=== PATIENT | female | born 1970 | race Caucasian/White ===

== ENCOUNTER 2017-09-03 13:55 | Emergency (ER) | END 2017-09-03 16:27 | disposition home or self-care (01) ==

== ENCOUNTER 2018-09-01 18:18 | Inpatient (IN) | payer MEDICAID ==
[~2018-09-01] VITALS: Ht 152.4 cm; Wt 78.0 kg
[~2018-09-01 18:18] MED LIST: BACTDS PO; BENZ-6 PO; CEPH-443 PO; D-ME473S2 PO; HYDR-762 PO; IBUP-1542 PO; IBUP-1561 PO; NITR-58 PO; ONDA4TAB35 PO
[2018-09-01] MEDS ORDERED: ONDANSETRON 4 MG INJ IV STA (19:50)
[2018-09-01] MEDS ORDERED: SOD CHLORIDE 0.9% 1,000 ML IV STA (19:50)
[2018-09-01] MEDS ORDERED: CEFTRIAXONE 1 GM/50 ML (PMX) 50 ML IVPB ONE (21:00)
[2018-09-01] MEDS ORDERED: ACETAMINOPHEN 500 MG TAB PO STA (21:27)
--- NOTE | 2018-09-01 22:00 | ERD ---
ER Documentation Chief Complaint Chief Complaint abdominal pain/vomiting/diarrhea x 4 days HPI 48-year-old female presents the emergency department complaining of abdominal pain. Patient states over the last 4 days she is a diffuse, nonspecific abdominal pain which is getting worse. She reports the pain is nonspecific and visceral in nature. Pain is associated with nausea with nonbilious emesis. Pain is associated with loose stool but no bloody diarrhea. Patient also reports bilateral flank pain as well as fevers and chills. Pain is described as mild to moderate at this time. ROS All systems reviewed and are negative except as per history of present illness. Medications Home Meds Discontinued Scripts Dextromethorphan Hb-Promethazine Hcl* (Promethazine DM* Syrup) 473 Ml Syrup, 5 ML PO Q6 PRN for COUGH, #4 OZ Prov:JAMAL ART PA-C 09/03/17 Benzonatate* (Tessalon Perle*) 100 Mg Capsule, 100 MG PO Q8H PRN for COUGH, #15 CAP Prov:JAMAL ART PA-C 09/03/17 Ibuprofen* (Motrin*) 600 Mg Tab, 600 MG PO Q6, #20 TAB Prov:JAMAL ART PA-C 09/03/17 Sulfamethoxazole-Trimethoprim* (Bactrim* DS) 800-160 Mg Tab, 1 TAB PO BID for 7 Days, #14 TAB 0 Refills Prov:KAELA WRIGHT PA-C 04/05/16 Ibuprofen* (Motrin*) 400 Mg Tab, 400 MG PO Q6 for 7 Days, #30 TAB 0 Refills Prov:KAELA WRIGHT PA-C 04/05/16 Cephalexin* (Keflex*) 500 Mg Capsule, 500 MG PO TID for 7 Days, #21 CAP 0 Refills Prov:KAELA WRIGHT PA-C 04/05/16 Ibuprofen* (Motrin*) 600 Mg Tab, 600 MG PO Q8 for 10 Days, #30 TAB 0 Refills Prov:KAELA WRIGHT PA-C 03/16/16 Ondansetron Hcl* (Zofran* ODT) 4 mg -ODT Tab.disper, 4 MG PO Q6 PRN for NAUSEA AND/OR VOMITING, #30 TAB Prov:KEVON MARTINES MD 02/19/16 Hydrocodone Bit-Acetaminophen* ([place]*) 10-325 Mg Tablet, 1 TAB PO Q6 PRN for PAIN, #7 TAB Prov:KEVON MARTINES MD 02/19/16 Nitrofurantoin Monohyd Macrocr* (Macrobid*) 100 Mg Capsr, 100 MG PO BID for 7 Days, CAP Prov:KEVON MARTINES MD 02/19/16 Allergies Allergies: Coded Allergies: No Known Allergy (Unverified , 09/01/18) PMhx/Soc History of Surgery: Yes (cholecystectomy 1998.kidneys stones laser removal) Anesthesia Reaction: No Hx Neurological Disorder: No Hx Respiratory Disorders: No Hx Cardiac Disorders: No Hx Psychiatric Problems: No Hx Miscellaneous Medical Probl: No Hx Alcohol Use: No Hx Substance Use: No Hx Tobacco Use: No Smoking Status: Never smoker FmHx Noncontributory for chief complaint Physical Exam Vitals Vital Signs Date Temp Pulse Resp B/P (MAP) Pulse Ox O2 O2 Flow FiO2 Time Delivery Rate 09/01/18 102.4 20:25 09/01/18 101.5 99 18 121/76 100 18:25 (91) Physical Exam GENERAL: Ill-appearing female in no distress HEENT: Pupils equal, round, and reactive to light. EOMI. There is no scleral icterus. NECK: C-spine is soft and supple, there is no meningismus. There is no cervical lymphadenopathy. LUNGS: Clear to auscultation bilaterally. There are no rales, wheezes or rhonchi. HEART: Regular rate and rhythm, no murmurs, clicks, rubs or gallops. ABDOMEN: Soft, non-tender, non-distended. There are bowel sounds in all four quadrants. No rebound or guarding. EXTREMITIES: There is no peripheral cyanosis or edema. No focal swelling or erythema. NEURO: The patient moves all four extremities with 5/5 strength. Cranial nerves II - XII are intact. Normal gait. Alert and oriented SKIN: There is no apparent rash or petechiae. HEME/LYMPHATIC: There is no evidence of excessive bruising or lymphedema. PSYCHIATRIC: The patient does not appear anxious or depressed. Result Diagram: 09/01/18200909/01/182009 Results 24 hrs Laboratory Tests Test 09/01/18 20:10 White Blood Count 10.3 10^3/ul Red Blood Count 4.75 10^6/ul Hemoglobin 9.3 g/dl Hematocrit 31.4 % Mean Corpuscular Volume 66.1 fl Mean Corpuscular Hemoglobin 19.6 pg Mean Corpuscular Hemoglobin Concent 29.6 g/dl Red Cell Distribution Width 17.8 % Platelet Count 200 10^3/UL Mean Platelet Volume 10.2 fl Immature Granulocytes % 0.600 % Neutrophils % 83.6 % Lymphocytes % 6.4 % Monocytes % 9.2 % Eosinophils % 0.0 % Basophils % 0.2 % Nucleated Red Blood Cells % 0.0 /100WBC Immature Granulocytes # 0.060 10^3/ul Neutrophils # 8.6 10^3/ul Lymphocytes # 0.7 10^3/ul Monocytes # 0.9 10^3/ul Eosinophils # 0.0 10^3/ul Basophils # 0.0 10^3/ul Nucleated Red Blood Cells # 0.0 10^3/ul Urine Color YELLOW Urine Clarity CLOUDY Urine pH 6.0 Urine Specific [place] 1.015 Urine Ketones NEGATIVE mg/dL Urine Nitrite NEGATIVE mg/dL Urine Bilirubin NEGATIVE mg/dL Urine Urobilinogen 1+ mg/dL Urine Leukocyte Esterase 3+ Melissa/ul Urine Microscopic RBC 4 /HPF Urine Microscopic WBC 68 /HPF Urine Squamous Epithelial Cells FEW /HPF Urine Bacteria FEW /HPF Urine Hemoglobin 2+ mg/dL Urine Glucose NEGATIVE mg/dL Urine Total Protein 2+ mg/dl Urine Test NEGATIVE Sodium Level 136 mmol/L Potassium Level 3.3 mmol/L Chloride Level 97 mmol/L Carbon Dioxide Level 26 mmol/L Anion Gap 13 Blood Urea Nitrogen 15 mg/dl Creatinine 0.57 mg/dl Est Glomerular Filtrat Rate mL/min > 60 mL/min Glucose Level 123 mg/dl Calcium Level 8.9 mg/dl Total Bilirubin 0.3 mg/dl Direct Bilirubin 0.00 mg/dl Indirect Bilirubin 0.3 mg/dl Aspartate Amino Transf (AST/SGOT) 21 IU/L Alanine Aminotransferase (ALT/SGPT) 6 IU/L Alkaline Phosphatase 87 IU/L Total Protein 7.5 g/dl Albumin 3.9 g/dl Globulin 3.60 g/dl Albumin/Globulin Ratio 1.08 Lipase 22 U/L Current Medications Medications Dose Sig/Brandee Start Time Status Last (Trade) Ordered Route PRN Stop Time Admin Dose Reason Admin Sodium 1,000 ml @ Q1H STAT 09/01/18 DC 09/01/18 Chloride 1,000 mls/hr IV 19:50 09/01/18 20:15 20:49 Ondansetron 4 mg ONCE STAT 09/01/18 DC 09/01/18 HCl (Zofran IV 19:50 09/01/18 20:16 Inj) 19:51 Ceftriaxone 50 ml @ ONCE ONCE 09/01/18 DC 09/01/18 Sodium 100 mls/hr IVPB 21:00 09/01/18 21:15 21:29 1,000 mg ONCE STAT 09/01/18 DC 09/01/18 Acetaminophen PO 21:27 09/01/18 21:45 (Tylenol 21:28 Tab) Procedures/MDM Patient was taken to a room, seen and evaluated. Comfort measures were i nitiated. Diagnostic tests were ordered and reviewed. RADIOLOGY: Reviewed with the radiologist CONSULTATION: Hospitalist was notified for admission urology consultation was requested REEVALUATION: [id number]: Diagnostic tests were appreciated and discussed with the patient. Although she remained nontoxic, I recommended admission to the hospital. MEDICAL DECISION MAKIN-year-old female presents the emergency department with what appears to be pyelonephritis. The remainder of her abdominal s ymptomatology has been worked up with no evidence of appendicitis. She is already status post cholecystectomy. She has evidence of an obstructing kidney stone which is likely related to the pain but also complicating the infection. Patient will require admission to the hospital for fluids and antibiotics at this time. Departure Diagnosis: Primary Impression: Pyelonephritis Additional Impression: Kidney stone Condition: JESSE Lee Sep 01, 2018 22:00
--- NOTE | 2018-09-01 23:56 | HP ---
Date/Time of Note Date/Time of Note DATE: 09/01/18 TIME: 23:56 Assessment/Plan VTE Prophylaxis Pharmacological prophylaxis: heparin Assessment/Plan Assessment/Plan 1. Obstructing left ureteral stone -Patient with a history of left-sided lithotripsy about 20 years ago -Will treat with IV fluids, Flomax, IV antibiotic -Strain urine -Urology has been consulted ER 2. Sepsis secondary to UTI with possible left-sided pyelonephritis -See #1 -Follow-up blood and urine culture results 3. Microcytic anemia -Workup for iron deficiency 4. Mild hypokalemia: Replete Result Diagram: 09/01/18200909/01/182009 Results 24hrs Laboratory Tests Test 09/01/18 20:10 White Blood Count 10.3 Red Blood Count 4.75 Hemoglobin 9.3 #L Hematocrit 31.4 #L Mean Corpuscular Volume 66.1 L Mean Corpuscular Hemoglobin 19.6 L Mean Corpuscular Hemoglobin Concent 29.6 L Red Cell Distribution Width 17.8 #H Platelet Count 200 Mean Platelet Volume 10.2 Immature Granulocytes % 0.600 H Neutrophils % 83.6 H Lymphocytes % 6.4 L Monocytes % 9.2 Eosinophils % 0.0 Basophils % 0.2 Nucleated Red Blood Cells % 0.0 Immature Granulocytes # 0.060 H Neutrophils # 8.6 H Lymphocytes # 0.7 L Monocytes # 0.9 Eosinophils # 0.0 Basophils # 0.0 Nucleated Red Blood Cells # 0.0 Urine Color YELLOW Urine Clarity CLOUDY A Urine pH 6.0 Urine Specific [place] 1.015 Urine Ketones NEGATIVE Urine Nitrite NEGATIVE Urine Bilirubin NEGATIVE Urine Urobilinogen 1+ H Urine Leukocyte Esterase 3+ H Urine Microscopic RBC 4 Urine Microscopic WBC 68 H Urine Squamous Epithelial Cells FEW Urine Bacteria FEW A Urine Hemoglobin 2+ H Urine Glucose NEGATIVE Urine Total Protein 2+ H Urine Test NEGATIVE Sodium Level 136 Potassium Level 3.3 L Chloride Level 97 Carbon Dioxide Level 26 Anion Gap 13 Blood Urea Nitrogen 15 Creatinine 0.57 Est Glomerular Filtrat Rate mL/min > 60 Glucose Level 123 Calcium Level 8.9 Total Bilirubin 0.3 Direct Bilirubin 0.00 Indirect Bilirubin 0.3 Aspartate Amino Transf (AST/SGOT) 21 Alanine Aminotransferase (ALT/SGPT) 6 L Alkaline Phosphatase 87 Total Protein 7.5 Albumin 3.9 Globulin 3.60 H Albumin/Globulin Ratio 1.08 Lipase 22 L HPI/ROS Admit Date/Time Admit Date/Time Hx of Present Illness This is a 48-year-old female with a history of left-sided nephroureterolithiasis about 18-20 years ago status post lithotripsy who presented to ER complaining of left flank and suprapubic pain. She also reported nonbloody nonbilious vomiting. When she presented to ER she was febrile with a temperature as high as 102.4. UA consistent with UTI. CT abdomen/pelvis shows there is an obstructing 7 mm distal left ureteral stone at the UVJ with a second smaller nonobstructing stone more proximally within the left ureter measuring 3 mm as well as multiple other bilateral nonobstructing renal calculi are seen including a staghorn calculus in the left upper pole. Currently, patient looks comfortable without any pain even on physical exam, even though she received pain meds several hours ago. PMH/Family/Social Past Medical History Medical History: other Coded Allergies: No Known Allergy (Unverified , 09/01/18) Past Surgical History Past Surgical Hx: cholecystectomy, other (Left-sided lithotripsy) Family History Significant Family History: heart disease, diabetes, hypertension Social History Alcohol Use: none Smoking Status: Never smoker Drug Use: none Exam/Review of Systems Vital Signs Vitals Vital Signs Date Temp Pulse Resp B/P (MAP) Pulse Ox O2 O2 Flow FiO2 Time Delivery Rate 09/01/18 100.3 83 20 126/54 99 Room Air 22:54 (78) Exam Constitutional: alert, oriented, well developed Head: normocephalic, atraumatic Eyes: EOMI, PERRL Respiratory: clear to auscultation, normal air movement Cardiovascular: regular rate and rhythm, nl pulses Gastrointestinal: soft, non-tender Extremities: normal pulses DANK SHERWOOD MD Sep 01, 2018 23:56
[2018-09-02] VITALS (13 sets, daily range): BP systolic 91–122; BP diastolic 22–72; PULSE 71–105; RESP 17–18; Ht 152.4 cm; Wt 78.0 kg
[2018-09-02] MEDS ORDERED: NACL 0.9% 3 ML SYG IV SCH
[2018-09-02] MEDS ORDERED: ONDANSETRON 4 MG INJ IV PRN
[2018-09-02] MEDS ORDERED: ACETAMINOPHEN 325 MG TAB PO PRN
[2018-09-02] MEDS ORDERED: HYDROCODONE/APAP (5/325) TAB PO PRN
[2018-09-02] MEDS ORDERED: TAMSULOSIN (SR) 0.4 MG CAP PO ONE (00:30)
[2018-09-02] MEDS: HYDROCODONE/APAP (5/325) TAB PO PRN (00:50)
[2018-09-02] MEDS: SOD CHLORIDE 0.9% 1,000 ML IV SCH ×3 (01:57→18:24)
[2018-09-02] MEDS: POTASSIUM CHLORIDE 100 ML IVPB SCH ×2 (02:17→05:03)
[2018-09-02] MEDS ORDERED: ALPRAZOLAM 1 MG TAB PO ONE (06:00)
[2018-09-02] MEDS: CEFTRIAXONE 1 GM/50 ML (PMX) 50 ML IVPB SCH (08:24)
[2018-09-02] MEDS ORDERED: HEPARIN 5,000 UNIT/1 ML VIAL SC SCH (09:00)
--- NOTE | 2018-09-02 11:29 | PN ---
Date/Time of Note Date/Time of Note DATE: 09/02/18 TIME: 11:20 Assessment/Plan VTE Prophylaxis Risk score (from Ns)>0 risk: 2 SCD applied (from [facility] [place]): No SCD contraindicated: other Pharmacological prophylaxis: heparin Lines/Catheters IV [facility] ([facility] Saline Lock Assessment/Plan Hospital Course S: O: VS - see below PE: GENERAL: Ill-appearing female in no distress HEENT: Pupils equal, round, and reactive to light. EOMI. NECK: C-spine is soft and supple, there is no meningismus. LUNGS: Clear to auscultation bilaterally. There are no rales, wheezes or rhonchi. HEART: Regular rate and rhythm, no murmurs, clicks, rubs or gallops. ABDOMEN: Soft, non-tender, non-distended. There are bowel sounds in all four quadrants. No rebound or guarding. EXTREMITIES: There is no peripheral cyanosis or edema. No focal swelling or erythema. NEURO: No focal deficits CT A/P: IMPRESSION: There is an obstructing 7 mm distal left ureteral stone at the UVJ with a second smaller nonobstructing stone more proximally within the left ureter measuring 3 mm. Multiple other bilateral nonobstructing renal calculi are seen including a staghorn calculus in the left upper pole. No evidence of bowel obstruction or inflammation. Trace atherosclerotic changes are visible. Assessment/Plan: 48-year-old female presenting with: 1. Obstructing left ureteral stone-Patient with a history of left-sided lithotripsy about [address] scan abdomen pelvis this admission results noted. -Continue treatment with IV fluids, Flomax, IV antibiotic -Strain urine -Follow recommendations from urology team 2. Sepsis secondary to UTI with possible left-sided pyelonephritis -patient on antibiotics, slowly improving -See #1 -Follow-up blood and urine culture results 3. Microcytic anemia-appears to be secondary to iron deficiency. -We will recheck hemoglobin today since it is lower today -Order for IV iron in the meantime 4. Mild hypokalemia: Monitor, will replete Result Diagram: 09/02/18 0525 09/02/18 0525 Results 24hrs Laboratory Tests Test 09/01/18 20:10 09/02/18 05:22 09/02/18 05:25 White Blood Count 10.3 6.4 # Red Blood Count 4.75 4.02 L Hemoglobin 9.3 #L 7.8 L Hematocrit 31.4 #L 27.1 L Mean Corpuscular Volume 66.1 L 67.4 L Mean Corpuscular Hemoglobin 19.6 L 19.4 L Mean Corpuscular Hemoglobin Concent 29.6 L 28.8 L Red Cell Distribution Width 17.8 #H 17.5 H Platelet Count 200 176 Mean Platelet Volume 10.2 10.6 H Immature Granulocytes % 0.600 H 0.500 H Neutrophils % 83.6 H 75.5 Lymphocytes % 6.4 L 10.9 L Monocytes % 9.2 12.6 H Eosinophils % 0.0 0.2 Basophils % 0.2 0.3 Nucleated Red Blood Cells % 0.0 0.0 Immature Granulocytes # 0.060 H 0.030 Neutrophils # 8.6 H 4.8 Lymphocytes # 0.7 L 0.7 L Monocytes # 0.9 0.8 Eosinophils # 0.0 0.0 Basophils # 0.0 0.0 Nucleated Red Blood Cells # 0.0 0.0 Urine Color YELLOW Urine Clarity CLOUDY A Urine pH 6.0 Urine Specific [place] 1.015 Urine Ketones NEGATIVE Urine Nitrite NEGATIVE Urine Bilirubin NEGATIVE Urine Urobilinogen 1+ H Urine Leukocyte Esterase 3+ H Urine Microscopic RBC 4 Urine Microscopic WBC 68 H Urine Squamous Epithelial Cells FEW Urine Bacteria FEW A Urine Hemoglobin 2+ H Urine Glucose NEGATIVE Urine Total Protein 2+ H Urine Test NEGATIVE Sodium Level 136 138 Potassium Level 3.3 L 3.5 Chloride Level 97 101 Carbon Dioxide Level 26 28 Anion Gap 13 9 Blood Urea Nitrogen 15 15 Creatinine 0.57 0.56 Est Glomerular Filtrat Rate mL/min > 60 > 60 Glucose Level 123 120 Calcium Level 8.9 8.3 L Total Bilirubin 0.3 Direct Bilirubin 0.00 Indirect Bilirubin 0.3 Aspartate Amino Transf (AST/SGOT) 21 Alanine Aminotransferase (ALT/SGPT) 6 L Alkaline Phosphatase 87 Total Protein 7.5 Albumin 3.9 Globulin 3.60 H Albumin/Globulin Ratio 1.08 Lipase 22 L Iron Level 11 L Total Iron Binding Capacity 288 Percent Iron Saturation 4 L Phosphorus Level 3.2 Magnesium Level 2.3 Ferritin 108.0 Exam/Review of Systems Vital Signs Vitals Vital Signs Date Temp Pulse Resp B/P (MAP) Pulse Ox O2 O2 Flow FiO2 Time Delivery Rate 09/02/18 75 08:23 09/02/18 98.1 17 101/52 99 07:12 (68) 09/02/18 Room Air 00:09 Intake and Output 09/01/18 09/01/18 09/02/18 1414:59 22:59 06:59 IntakeIntake Total 980 ml OutputOutput Total 300 ml BalanceBalance 680 ml Medications Medications Current Medications Sodium Chloride 1,000 ml @ 100 mls/hr Q10H IV Last administered on 09/02/18at 01:57; Admin Dose 100 MLS/HR; Start 09/02/18 at 00:00 IV Flush (NS 3 ml) 3 ml PER PROTOCOL IV ; Start 09/02/18 at 00:00 Ondansetron HCl (Zofran Inj) 4 mg Q6H PRN IV NAUSEA AND/OR VOMITING Last ad ministered on 09/02/18at 03:29; Admin Dose 4 MG; Start 09/02/18 at 00:00 Acetaminophen (Tylenol Tab) 650 mg Q6H PRN PO PAIN LEVEL 1-3 OR FEVER; Start 09/02/18 at 00:00 Acetaminophen/ Hydrocodone Bitart ([place] (5/325)) 1 tab Q6H PRN PO MODERATE PAIN LEVEL 4-6; Start 09/02/18 at 00:00 Acetaminophen/ Hydrocodone Bitart ([place] (5/325)) 2 tab Q6H PRN PO SEVERE PAIN LEVEL 7-10 Last administered on 09/02/18at 00:50; Admin Dose 2 TAB; Start 09/02/18 at 00:00 Heparin Sodium (Porcine) (Heparin (5000 Units/1ml)) 5,000 unit Q12 SC Last administered on 09/02/18at 09:40; Admin Dose 5,000 UNIT; Start 09/02/18 at 09:00 Ceftriaxone Sodium 50 ml @ 100 mls/hr DAILY IVPB Last administered on 09/02/18at 08:24; Admin Dose 100 MLS/HR; Start 09/02/18 at 09:00 GUERRERO NAVAS Sep 02, 2018 11:29
[2018-09-02] MEDS: SOD FERRIC GLUC COMPLX 125 MG in SOD CHLORIDE 0.9% 100 ML IVPB SCH (13:05)
--- NOTE | 2018-09-02 14:35 | CONS ---
Date/Time of Note Date/Time of Note DATE: 09/02/18 TIME: 14:28 Assessment/Plan Assessment/Plan Assessment/Plan 48-year-old female presented to the emergency room with left flank pain. She underwent a CT scan of the abdomen and pelvis and that showed multiple stones in the left kidney and a 7 mm stone in the distal left ureter causing obstruction. Urological consultation was therefore requested. Patient states that she has had kidney stones in the past has undergone extracorporeal shockwave lithotripsy to them at [facility] about 20 years earlier. She does have left flank tenderness. I reviewed the CT scan with her and her family at her bedside. Showed her the stone in the distal left ureter and also the multiple stones in her left kidney. Explained to her the treatment options. We will do cystoscopy left ureteroscopy, laser lithotripsy, and insertion of left ureteral JJ stent. Procedure is for the distal left ureteral stone but nothing is going to be done for the kidney stones at the present time since they are not causing problems. She will need later on treatment for the stones as an outpatient. I discussed with her the procedure, the benefits, the risks and the possible complications. I also explained to her that we will remove the stone in the ureter and nothing will guarantee that another stone from her left kidney does not come down and cause the same problem. She did understand all of that and she is agreeable to proceed Result Diagram: 09/02/18 1226 09/02/18 0525 Results 24hrs Laboratory Tests Test 09/01/18 20:10 09/02/18 05:22 09/02/18 05:25 09/02/18 12:26 White Blood Count 10.3 6.4 # Red Blood Count 4.75 4.02 L Hemoglobin 9.3 #L 7.8 L 8.3 L Hematocrit 31.4 #L 27.1 L 28.8 L Mean Corpuscular Volume 66.1 L 67.4 L Mean Corpuscular 19.6 L 19.4 L Hemoglobin Mean Corpuscular 29.6 L 28.8 L Hemoglobin Concent Red Cell Distribution 17.8 #H 17.5 H Width Platelet Count 200 176 Mean Platelet Volume 10.2 10.6 H Immature Granulocytes % 0.600 H 0.500 H Neutrophils % 83.6 H 75.5 Lymphocytes % 6.4 L 10.9 L Monocytes % 9.2 12.6 H Eosinophils % 0.0 0.2 Basophils % 0.2 0.3 Nucleated Red Blood 0.0 0.0 Cells % Immature Granulocytes # 0.060 H 0.030 Neutrophils # 8.6 H 4.8 Lymphocytes # 0.7 L 0.7 L Monocytes # 0.9 0.8 Eosinophils # 0.0 0.0 Basophils # 0.0 0.0 Nucleated Red Blood 0.0 0.0 Cells # Urine Color YELLOW Urine Clarity CLOUDY A Urine pH 6.0 Urine Specific [place] 1.015 Urine Ketones NEGATIVE Urine Nitrite NEGATIVE Urine Bilirubin NEGATIVE Urine Urobilinogen 1+ H Urine Leukocyte Esterase 3+ H Urine Microscopic RBC 4 Urine Microscopic WBC 68 H Urine Squamous FEW Epithelial Cells Urine Bacteria FEW A Urine Hemoglobin 2+ H Urine Glucose NEGATIVE Urine Total Protein 2+ H Urine Test NEGATIVE Sodium Level 136 138 Potassium Level 3.3 L 3.5 Chloride Level 97 101 Carbon Dioxide Level 26 28 Anion Gap 13 9 Blood Urea Nitrogen 15 15 Creatinine 0.57 0.56 Est Glomerular Filtrat > 60 > 60 Rate mL/min Glucose Level 123 120 Calcium Level 8.9 8.3 L Total Bilirubin 0.3 Direct Bilirubin 0.00 Indirect Bilirubin 0.3 Aspartate Amino 21 Transf (AST/SGOT) Alanine 6 L Aminotransferase (ALT/SG PT) Alkaline Phosphatase 87 Total Protein 7.5 Albumin 3.9 Globulin 3.60 H Albumin/Globulin Ratio 1.08 Lipase 22 L Iron Level 11 L Total Iron Binding 288 Capacity Percent Iron Saturation 4 L Phosphorus Level 3.2 Magnesium Level 2.3 Ferritin 108.0 Consultation Date/Type/Reason Admit Date/Time September 02, 2018 Date of Consultation: Sep 02, 2018 Type of Consult Urology Reason for Consultation Distal left ureteral stone Requesting Provider: DANK SHERWOOD MD Hx of Present Illness 48-year-old female presented to the emergency room with left flank pain. She underwent a CT scan of the abdomen and pelvis and that showed multiple stones in the left kidney and a 7 mm stone in the distal left ureter causing obstruction. Urological consultation was therefore requested. Patient states that she has had kidney stones in the past has undergone extracorporeal shockwave lithotripsy to them at [facility] about 20 years earlier. Constitutional: no complaints Eyes: no complaints ENT: no complaints Respiratory: no complaints Cardiovascular: no complaints Gastrointestinal: no complaints Genitourinary: flank pain (Left side) Musculoskeletal: no complaints Skin: no complaints Neurologic: no complaints Endocrine: no complaints Psychological: no complaints Immunologic: no complaints Past Medical History Medical History: no pertinent history Medications Current Medications Sodium Chloride 1,000 ml @ 100 mls/hr Q10H IV Last administered on 09/02/18at 01:57; Admin Dose 100 MLS/HR; Start 09/02/18 at 00:00 IV Flush (NS 3 ml) 3 ml PER PROTOCOL IV ; Start 09/02/18 at 00:00 Ondansetron HCl (Zofran Inj) 4 mg Q6H PRN IV NAUSEA AND/OR VOMITING Last administered on 09/02/18at 03:29; Admin Dose 4 MG; Start 09/02/18 at 00:00 Acetaminophen (Tylenol Tab) 650 mg Q6H PRN PO PAIN LEVEL 1-3 OR FEVER; Start 09/02/18 at 00:00 Acetaminophen/ Hydrocodone Bitart ([place] (5/325)) 1 tab Q6H PRN PO MODERATE PAIN LEVEL 4-6; Start 09/02/18 at 00:00 Acetaminophen/ Hydrocodone Bitart ([place] (5/325)) 2 tab Q6H PRN PO SEVERE PAIN LEVEL 7-10 Last administered on 09/02/18at 00:50; Admin Dose 2 TAB; Start 09/02/18 at 00:00 Heparin Sodium (Porcine) (Heparin (5000 Units/1ml)) 5,000 unit Q12 SC Last administered on 09/02/18at 09:40; Admin Dose 5,000 UNIT; Start 09/02/18 at 09:00 Ceftriaxone Sodium 50 ml @ 100 mls/hr DAILY IVPB Last administered on 09/02/18at 08:24; Admin Dose 100 MLS/HR; Start 09/02/18 at 09:00 Ferric Sodium Gluconate Complex 125 mg/Sodium Chloride 100 ml @ 100 mls/hr DAILY@1300 IVPB Last administered on 09/02/18at 13:05; Admin Dose 100 MLS/HR; Start 09/02/18 at 13:00; Stop 09/04/18 at 13:59 Allergies: Coded Allergies: No Known Allergy (Unverified , 09/01/18) Past Surgical History Past Surgical Hx: cholecystectomy, other (Left-sided lithotripsy) Social History Alcohol Use: none Smoking Status: Never smoker Drug Use: none Exam/Review of Systems Vital Signs Vitals Vital Signs Date Temp Pulse Resp B/P (MAP) Pulse Ox O2 O2 Flow FiO2 Time Delivery Rate 09/02/18 94 12:11 09/02/18 98.6 17 108/61 100 Room Air 11:27 (77) Intake and Output 09/01/18 09/01/18 09/02/18 1515:00 23:00 07:00 IntakeIntake Total 980 ml OutputOutput Total 300 ml BalanceBalance 680 ml Exam Constitutional: alert Psych: no complaints Head: normocephalic Eyes: nl conjunctiva ENMT: nl external ears & nose Neck: supple, non-tender Respiratory: normal air movement Cardiovascular: No jugular venous distention (JVD) Gastrointestinal: soft Genitourinary - Female: CVA tenderness (Left side) Musculoskeletal: nl extremities to inspection Extremities: No calf tenderness Neurological: nl mental status Skin: nl turgor Medications Medications Current Medications Sodium Chloride 1,000 ml @ 100 mls/hr Q10H IV Last administered on 09/02/18at 01:57; Admin Dose 100 MLS/HR; Start 09/02/18 at 00:00 IV Flush (NS 3 ml) 3 ml PER PROTOCOL IV ; Start 09/02/18 at 00:00 Ondansetron HCl (Zofran Inj) 4 mg Q6H PRN IV NAUSEA AND/OR VOMITING Last administered on 09/02/18at 03:29; Admin Dose 4 MG; Start 09/02/18 at 00:00 Acetaminophen (Tylenol Tab) 650 mg Q6H PRN PO PAIN LEVEL 1-3 OR FEVER; Start 09/02/18 at 00:00 Acetaminophen/ Hydrocodone Bitart ([place] (5/325)) 1 tab Q6H PRN PO MODERATE PAIN LEVEL 4-6; Start 09/02/18 at 00:00 Acetaminophen/ Hydrocodone Bitart ([place] (5/325)) 2 tab Q6H PRN PO SEVERE PAIN LEVEL 7-10 Last administered on 09/02/18at 00:50; Admin Dose 2 TAB; Start 09/02/18 at 00:00 Heparin Sodium (Porcine) (Heparin (5000 Units/1ml)) 5,000 unit Q12 SC Last administered on 09/02/18at 09:40; Admin Dose 5,000 UNIT; Start 09/02/18 at 09:00 Ceftriaxone Sodium 50 ml @ 100 mls/hr DAILY IVPB Last administered on 09/02/18at 08:24; Admin Dose 100 MLS/HR; Start 09/02/18 at 09:00 Ferric Sodium Gluconate Complex 125 mg/Sodium Chloride 100 ml @ 100 mls/hr LEONARDO Y@1300 IVPB Last administered on 09/02/18at 13:05; Admin Dose 100 MLS/HR; Start 09/02/18 at 13:00; Stop 09/04/18 at 13:[address] scan of the abdomen and pelvis: There is an obstructing 7 mm distal left ureteral stone at the UVJ with a second smaller nonobstructing stone more proximally within the left ureter measuring 3 mm. Multiple other bilateral nonobstructing renal calculi are seen including a staghorn calculus in the left upper pole. No evidence of bowel obstruction or inflammation. Trace atherosclerotic changes are visible. ANDREW PANTOJA MD Sep 02, 2018 14:35
[2018-09-03] VITALS (17 sets, daily range): BP systolic 100–122; BP diastolic 56–67; PULSE 70–89; RESP 16–21
[2018-09-03] MEDS: SOD CHLORIDE 0.9% 1,000 ML IV SCH ×2 (06:00→14:15)
[2018-09-03] MEDS ORDERED: SEVOFLURANE 15 MIN ONE (07:00)
[2018-09-03] MEDS ORDERED: EPHEDrine SULFATE 50 MG/5 ML SYG ONE (07:00)
--- NOTE | 2018-09-03 07:19 | PREAC ---
Date/Time of Note Date/Time of Note DATE: 09/03/18 TIME: 07:15 Anesthesia Eval and Record Evaluation Time Pre-Procedure Interview DATE: 09/03/18 TIME: 07:15 Age 48 Sex female NPO: 8 hrs Preoperative diagnosis Left Kidney Stone Planned procedure Cystoscopy and Left Ureteroscopy and laser Lithotripsy Insertion of Left JJ stent Past Medical History Past Medical History: Includes Heme: Anemia Surgery & Anesthesia Issues No known issue Meds Anticoagulation: No Beta Dario within 24 hr: No Reason Beta Dario not given: Pt. not on B-Dario Discontinued Scripts Dextromethorphan Hb-Promethazine Hcl* (Promethazine DM* Syrup) 473 Ml Syrup, 5 ML PO Q6 PRN for COUGH, #4 OZ Prov:JAMAL ART PA-C 09/03/17 Benzonatate* (Tessalon Perle*) 100 Mg Capsule, 100 MG PO Q8H PRN for COUGH, #15 CAP Prov:JAMAL ART PA-C 09/03/17 Ibuprofen* (Motrin*) 600 Mg Tab, 600 MG PO Q6, #20 TAB Prov:JAMAL ARTC 09/03/17 Sulfamethoxazole-Trimethoprim* (Bactrim* DS) 800-160 Mg Tab, 1 TAB PO BID for 7 Days, #14 TAB 0 Refills Prov:KAELA WRIGHT PA-C 04/05/16 Ibuprofen* (Motrin*) 400 Mg Tab, 400 MG PO Q6 for 7 Days, #30 TAB 0 Refills Prov:KAELA RWIGHT PA-C 04/05/16 Cephalexin* (Keflex*) 500 Mg Capsule, 500 MG PO TID for 7 Days, #21 CAP 0 Refills Prov:KAELA WRIGHT PA-C 04/05/16 Ibuprofen* (Motrin*) 600 Mg Tab, 600 MG PO Q8 for 10 Days, #30 TAB 0 Refills Prov:KAELA WRIGHT PA-C 03/16/16 Ondansetron Hcl* (Zofran* ODT) 4 mg -ODT Tab.disper, 4 MG PO Q6 PRN for NAUSEA AND/OR VOMITING, #30 TAB Prov:KEVON MARTINES MD 02/19/16 Hydrocodone Bit-Acetaminophen* ([place]*) 10-325 Mg Tablet, 1 TAB PO Q6 PRN for PAIN, #7 TAB Prov:KEVON MARTINES MD 02/19/16 Nitrofurantoin Monohyd Macrocr* (Macrobid*) 100 Mg Capsr, 100 MG PO BID for 7 Days, CAP Prov:KEVON MARTINES MD 02/19/16 Current Medications Sodium Chloride 1,000 ml @ 100 mls/hr Q10H IV Last administered on 09/02/18at 18:24; Admin Dose 100 MLS/HR; Start 09/02/18 at 00:00 IV Flush (NS 3 ml) 3 ml PER PROTOCOL IV ; Start 09/02/18 at 00:00 Ondansetron HCl (Zofran Inj) 4 mg Q6H PRN IV NAUSEA AND/OR VOMITING Last administered on 09/02/18at 03:29; Admin Dose 4 MG; Start 09/02/18 at 00:00 Acetaminophen (Tylenol Tab) 650 mg Q6H PRN PO PAIN LEVEL 1-3 OR FEVER; Start 09/02/18 at 00:00 Acetaminophen/ Hydrocodone Bitart ([place] (5/325)) 1 tab Q6H PRN PO MODERATE PAIN LEVEL 4-6; Start 09/02/18 at 00:00 Acetaminophen/ Hydrocodone Bitart ([place] (5/325)) 2 tab Q6H PRN PO SEVERE PAIN LEVEL 7-10 Last administered on 09/02/18at 00:50; Admin Dose 2 TAB; Start 09/02/18 at 00:00 Ceftriaxone Sodium 50 ml @ 100 mls/hr DAILY IVPB Last administered on 09/02/18at 08:24; Admin Dose 100 MLS/HR; Start 09/02/18 at 09:00 Ferric Sodium Gluconate Complex 125 mg/Sodium Chloride 100 ml @ 100 mls/hr DAILY@1300 IVPB Last administered on 09/02/18at 13:05; Admin Dose 100 MLS/HR; Start 09/02/18 at 13:00; Stop 09/04/18 at 13:59 Meds reviewed: Yes Allergies Coded Allergies: No Known Allergy (Unverified , 09/01/18) Allergies Reviewed: Yes Labs/Studies Labs Reviewed: Reviewed by anesthesiologist Result Diagram: 09/03/1817 09/03/18 0517 Laboratory Tests 09/03/18 05:17 test: Negative Studies: ECG (n/a), CXR (n/a) Pre-procedure Exam Last vitals Vital Signs Date Temp Pulse Resp B/P (MAP) Pulse Ox O2 O2 Flow FiO2 Time Delivery Rate 09/03/18 98.2 89 17 106/58 99 Room Air 04:00 (74) Airway: Adequate mouth opening, Adequate thyromental dist Mallampati: Mallampati II Teeth: Normal Lung: Normal Heart: Normal ASA Physical Status ASA physical status: 3 Emergency: None Planned Anesthetic General/MAC: ETT Planned Pain Management Parenteral pain med Pre-operative Attestations Prior to commencing anesthesia and surgery, the patient was re-evaluated, there was verification of: *The patient's identity *The results of appropriate recent lab work and preoperative vital signs *The above evaluation not changing prior to induction *Anesthetic plan, risk benefits, alternative and complications discussed with patient/family; questions answered; patient/family understands, accepts and wishes to proceed. EVERETT BENJAMIN MD Sep 03, 2018 07:19
[2018-09-03] MEDS ORDERED: CEFAZOLIN 1 GM INJ ONE (07:23)
[2018-09-03] MEDS ORDERED: PROPOFOL 20 ML ONE (07:23)
[2018-09-03] MEDS ORDERED: ROCURONIUM 50 MG INJ ONE (07:23)
[2018-09-03] MEDS ORDERED: FENTAnyl 50 MCG/ML VIAL ONE (07:24)
[2018-09-03] MEDS ORDERED: MIDAZOLAM 1 MG/ML 2 ML INJ ONE (07:24)
[2018-09-03] MEDS ORDERED: hydrALAzine 20 MG INJ IV PRN (07:30)
[2018-09-03] MEDS ORDERED: HYDROmorphONE 1 MG/5 ML IV SYRINGE IV PRN ×3 (07:30)
[2018-09-03] MEDS ORDERED: FENTAnyl 50 MCG/ML VIAL IV PRN ×3 (07:30)
[2018-09-03] MEDS ORDERED: MEPERIDINE 25 MG INJ IV PRN (07:30)
[2018-09-03] MEDS ORDERED: LABETALOL HCL 20MG INJ IV PRN (07:30)
[2018-09-03] MEDS ORDERED: ONDANSETRON 4 MG INJ IV PRN (07:30)
[2018-09-03] MEDS ORDERED: EPHEDrine SULFATE 50 MG/5 ML SYG IV PRN (07:30)
[2018-09-03] MEDS ORDERED: DIPHENHYDRAMINE 50 MG INJ IV PRN (07:30)
[2018-09-03] MEDS ORDERED: OXYCODONE/ACETAMINOPHEN (5/325) TAB PO PRN (07:30)
[2018-09-03] MEDS ORDERED: METOCLOPRAMIDE 10 MG INJ IV PRN (07:30)
--- NOTE | 2018-09-03 07:33 | HPN ---
Date/Time of Note Date/Time of Note DATE: 09/03/18 TIME: 07:33 Interval H&P Admission Note Pt. seen H&P reviewed: No system changes ANDREW PANTOJA MD Sep 03, 2018 07:33
[2018-09-03] MEDS ORDERED: ONDANSETRON 4 MG INJ ONE (08:18)
[2018-09-03] MEDS ORDERED: DEXAMETHASONE 4 MG/ML 1 ML INJ ONE ×2 (08:18→08:19)
[2018-09-03] MEDS ORDERED: METOCLOPRAMIDE 10 MG INJ ONE (08:18)
[2018-09-03] MEDS ORDERED: KETOROLAC 30 MG INJ ONE (08:18)
[2018-09-03] MEDS ORDERED: NEOSTIGMINE 3 MG/3 ML SYRINGE ONE (08:54)
[2018-09-03] MEDS ORDERED: GLYCOPYRROLATE 0.4 MG INJ ONE (08:54)
--- NOTE | 2018-09-03 09:05 | PAC ---
Date/Time of Note Date/Time of Note DATE: 09/03/18 TIME: 09:05 Post-Anesthesia Notes Post-Anesthesia Note Last documented vital signs Vital Signs Date Temp Pulse Resp B/P (MAP) Pulse Ox O2 O2 Flow FiO2 Time Delivery Rate 09/03/18 98.2 89 17 106/58 99 Face Mask 10L 04:00 (74) Activity: WNL Respiratory function: WNL Cardiovascular function: WNL Mental status: Baseline Pain reasonably controlled: Yes Hydration appropriate: Yes Nausea/Vomiting absent: Yes EVERETT BENJAMIN MD Sep 03, 2018 09:05
--- NOTE | 2018-09-03 09:20 | OPR ---
Date/Time of Note Date/Time of Note DATE: 09/03/18 TIME: 09:11 Operative Report Procedure Date: Sep 03, 2018 Preoperative Diagnosis Distal left ureteral stones Postoperative Diagnosis Same Operation/Procedure Performed Cystoscopy, left ureteroscopy, laser lithotripsy and insertion of left ureteral JJ stent 6 Cymro by 20 cm long Surgeon see signature line Account Representative agriculture laboratory technician Pedro Luis Anesthesia Type: general Anesthesiologist: EVERETT BENJAMIN MD Estimated Blood Loss: none Transfusion none Specimen Stone fragments Grafts/Implants Left ureteral JJ stent 6 Cymro by 20 cm long Complications none Pt Condition Post Procedure: stable Disposition: PACU Indications Distal left ureteral stones with the left hydronephrosis Procedure Description The patient was brought to the operating room. Time out was done the patient was identified by her name, birthdate, the procedure and the side of the procedure. The patient was given 2 g of Ancef IV at the start of the procedure. The patient was then positioned in the lithotomy position and the genital area was prepped and draped in the usual sterile manner. #21 Cymro cystoscope sheath was introduced into the bladder, urine was collected for culture and sensitivity. The left ureteral orifice was then cannulated with 5 Cymro open ended ureteral catheter. 0.035 zip wire was then advanced through the open ended all the way up to the kidney. The zip wire was kept in place and the open ended was removed and reintroduced through the second working channel. A sensor wire 0.035 was then passed through the open ended all the way up to the kidney. The open-ended was removed and the sensor wire was kept in place. The sensor wire was used as a safety wire and the zip wire was used to advance on it the rigid ureteroscope. The ureteroscope was advanced to the level of the stones, the stones were visualized, then the wire was removed and the 265 m laser fiber was used and the holmium laser was used to break the stones into multiple pieces. these pieces were then basketed one at a time and dropped into the bladder, multiple pieces were large that they needed further breaking by the laser and once that was done the remaining stone fragments were removed. As I removed the large stones in the distal ureter 2 additional stones came down in the same area and I basketed them out. The ureter was cleared completely from the stone fragments. Then I did the cystoscopy and drained all the stone fragments out of the bladder. Then I reintroduced the cystoscope on the safety wire and inserted a 6 Cymro by 20 cm long JJ stent in the left ureter under fluoroscopy, had its proximal end curling into the kidney and the distal end curling into the bladder. The distal end is attached to a string that was bro ught out through the urethra and taped with 2 pieces of Tegaderm to her right groin. The patient tolerated the procedure well and was transferred to recovery room in stable and satisfactory condition ANDREW PANTOJA MD Sep 03, 2018 09:20
--- NOTE | 2018-09-03 09:46 | PN ---
Date/Time of Note Date/Time of Note DATE: 09/03/18 TIME: 09:45 Assessment/Plan VTE Prophylaxis Risk score (from Ns)>0 risk: 2 SCD applied (from [facility] [place]): No SCD contraindicated: other Pharmacological prophylaxis: heparin Lines/Catheters IV Catheter Type (from [facility]): Peripheral IV Assessment/Plan Hospital Course S: Patient off the floor getting cystoscopy procedure now. O: VS - see below PE: -Unable to be performed presently because the patient is off the floor and procedure now CT A/P: IMPRESSION: There is an obstructing 7 mm distal left ureteral stone at the UVJ with a second smaller nonobstructing stone more proximally within the left ureter measuring 3 mm. Multiple other bilateral nonobstructing renal calculi are seen including a staghorn calculus in the left upper pole. No evidence of bowel obstruction or inflammation. Trace atherosclerotic changes are visible. Assessment/Plan: 48-year-old female presenting with: 1. Obstructing left ureteral stone-Patient with a history of left-sided lithotripsy about [address] scan abdomen pelvis this admission results noted. -Continue treatment with IV fluids, Flomax, IV antibiotic -Strain urine -Follow recommendations from urology team -again for cystoscopy presently 2. Sepsis secondary to UTI with possible left-sided pyelonephritis -patient on antibiotics, slowly improving -See #1 -Continue antibiotics, follow-up final blood and urine culture results 3. Microcytic anemia-appears to be secondary to iron deficiency. -Patient apparently getting blood transfusion now in the operating room per discussion with medical economics consultant team, also received IV iron yesterday. Dispo: Likely today or in 24 hours after patient recovers from operation, after blood transfusion, and after culture results are back. Result Diagram: 09/03/1851609/03/18516 Results 24hrs Laboratory Tests Test 09/02/18 12:26 09/02/18 15:57 09/02/18 16:37 09/03/18 05:17 Hemoglobin 8.3 L 7.4 L Hematocrit 28.8 L 25.9 L Stool Occult Blood NEGATIVE Prothrombin Time 14.7 Prothrombin Time Ratio 1.1 INR International 1.14 Normalized Ratio Activated 42.5 H Partial Thromboplast Time White Blood Count 6.4 Red Blood Count 3.85 L Mean Corpuscular Volume 67.3 L Mean Corpuscular 19.2 L Hemoglobin Mean Corpuscular 28.6 L Hemoglobin Concent Red Cell Distribution 17.7 H Width Platelet Count 198 Mean Platelet Volume 10.5 H Immature Granulocytes % 0.500 H Neutrophils % 65.3 Lymphocytes % 19.8 Monocytes % 13.0 H Eosinophils % 0.8 Basophils % 0.6 Nucleated Red Blood 0.0 Cells % Immature Granulocytes # 0.030 Neutrophils # 4.2 Lymphocytes # 1.3 Monocytes # 0.8 Eosinophils # 0.1 Basophils # 0.0 Nucleated Red Blood 0.0 Cells # Sodium Level 141 Potassium Level 3.9 Chloride Level 105 Carbon Dioxide Level 27 Anion Gap 9 Blood Urea Nitrogen 9 Creatinine 0.55 Est Glomerular Filtrat > 60 Rate mL/min Glucose Level 96 Calcium Level 8.5 Phosphorus Level 3.6 Magnesium Level 1.9 Total Bilirubin 0.0 L Direct Bilirubin 0.00 Indirect Bilirubin 0.0 Aspartate Amino 55 H Transf (AST/SGOT) Alanine 72 H Aminotransferase (ALT/SG PT) Alkaline Phosphatase 115 Total Protein 6.3 # Albumin 2.9 #L Globulin 3.40 H Albumin/Globulin Ratio 0.85 Exam/Review of Systems Vital Signs Vitals Vital Signs Date Temp Pulse Resp B/P (MAP) Pulse Ox O2 O2 Flow FiO2 Time Delivery Rate 09/03/18 88 21 110/62 99 Room Air 09:27 (78) 09/03/18 6.0 09:19 09/03/18 100.0 09:07 Intake and Output 09/02/18 09/02/18 09/03/18 1515:00 23:00 07:00 IntakeIntake Total 50 ml 600 ml BalanceBalance 50 ml 600 ml Medications Medications Current Medications Sodium Chloride 1,000 ml @ 100 mls/hr Q10H IV Last administered on 09/02/18at 18:24; Admin Dose 100 MLS/HR; Start 09/02/18 at 00:00 IV Flush (NS 3 ml) 3 ml PER PROTOCOL IV ; Start 09/02/18 at 00:00 Ondansetron HCl (Zofran Inj) 4 mg Q6H PRN IV NAUSEA AND/OR VOMITING Last administered on 09/02/18at 03:29; Admin Dose 4 MG; Start 09/02/18 at 00:00 Acetaminophen (Tylenol Tab) 650 mg Q6H PRN PO PAIN LEVEL 1-3 OR FEVER; Start 09/02/18 at 00:00 Acetaminophen/ Hydrocodone Bitart ([place] (5/325)) 1 tab Q6H PRN PO MODERATE PAIN LEVEL 4-6; Start 09/02/18 at 00:00 Acetaminophen/ Hydrocodone Bitart ([place] (5/325)) 2 tab Q6H PRN PO SEVERE PAIN LEVEL 7-10 Last administered on 09/02/18at 00:50; Admin Dose 2 TAB; Start 09/02/18 at 00:00 Ceftriaxone Sodium 50 ml @ 100 mls/hr DAILY IVPB Last administered on 09/02/18at 08:24; Admin Dose 100 MLS/HR; Start 09/02/18 at 09:00 Ferric Sodium Gluconate Complex 125 mg/Sodium Chloride 100 ml @ 100 mls/hr DAILY@1300 IVPB Last administered on 09/02/18at 13:05; Admin Dose 100 MLS/HR; Start 09/02/18 at 13:00; Stop 09/04/18 at 13:59 Hydromorphone HCl (Dilaudid) 0.2 mg PACU PRN IV MILD PAIN LEVEL 1-3; Start 09/03/18 at 07:30; Stop 09/03/18 at 12:00 Hydromorphone HCl (Dilaudid) 0.4 mg PACU PRN IV MODERATE PAIN LEVEL 4-6; Start 09/03/18 at 07:30; Stop 09/03/18 at 12:00 Hydromorphone HCl (Dilaudid) 0.6 mg PACU PRN IV SEVERE PAIN LEVEL 7-10; Start 09/03/18 at 07:30; Stop 09/03/18 at 12:00 Fentanyl (Sublimaze) 25 mcg PACU ORDER PRN IV MILD PAIN LEVEL 1-3; Start 09/03/18 at 07:30; Stop 09/03/18 at 12:00 Fentanyl (Sublimaze) 50 mcg PACU ORDER PRN IV MODERATE PAIN LEVEL 4-6; Start 09/03/18 at 07:30; Stop 09/03/18 at 12:00 Fentanyl (Sublimaze) 75 mcg PACU ORDER PRN IV SEVERE PAIN LEVEL 7-10; Start 09/03/18 at 07:30; Stop 09/03/18 at 12:00 Oxycodone/ Acetaminophen (Percocet (5/ 325)) 1 tab PACU ORDER PRN PO PAIN LEVEL 1-5; Start 09/03/18 at 07:30; Stop 09/03/18 at 12:00 Ondansetron HCl (Zofran Inj) 4 mg PACU ORDER PRN IV NAUSEA AND/OR VOMITING; Start 09/03/18 at 07:30; Stop 09/03/18 at 12:00 Metoclopramide HCl (Reglan) 10 mg PACU ORDER PRN IV NAUSEA AND/OR VOMITING; Start 09/03/18 at 07:30; Stop 09/03/18 at 12:00 Labetalol HCl (Labetalol) 5 mg PACU ORDER PRN IV ELEVATED BLOOD PRESSURE; Start 09/03/18 at 07:30; Stop 09/03/18 at 12:00 Hydralazine HCl (Apresoline) 5 mg PACU ORDER PRN IV ELEVATED BLOOD PRESSURE; Start 09/03/18 at 07:30; Stop 09/03/18 at 12:00 Ephedrine Sulfate 5 mg PACU ORDER PRN IV BLOOD PRESSURE SUPPORT; Start 09/03/18 at 07:30; Stop 09/03/18 at 12:00 Meperidine HCl (Demerol) 25 mg PACU ORDER PRN IV POST OPERATIVE SHIVERING; Start 09/03/18 at 07:30; Stop 09/03/18 at 12:00 Diphenhydramine HCl (Benadryl) 25 mg PACU ORDER PRN IV PRURITUS; Start 09/03/18 at 07:30; Stop 09/03/18 at 12:00 GUERRERO NAVAS Sep 03, 2018 09:46
[2018-09-03] MEDS: CEFTRIAXONE 1 GM/50 ML (PMX) 50 ML IVPB SCH (10:15)
[2018-09-03] MEDS: SOD FERRIC GLUC COMPLX 125 MG in SOD CHLORIDE 0.9% 100 ML IVPB SCH (14:15)
[2018-09-03] MEDS: HYDROCODONE/APAP (5/325) TAB PO PRN ×2 (15:33→22:39)
[2018-09-04] VITALS: BP 139/61; PULSE 56; PULSE 76; RESP 18
[2018-09-04] MEDS: SOD CHLORIDE 0.9% 1,000 ML IV SCH (02:35)
[2018-09-04 04:00] VITALS: BP 148/75; PULSE 57; PULSE 63; RESP 18
[2018-09-04 07:12] VITALS: BP 144/66; PULSE 72; RESP 18
[2018-09-04 08:00] VITALS: PULSE 65
[2018-09-04] MEDS: CEFTRIAXONE 1 GM/50 ML (PMX) 50 ML IVPB SCH (08:43)
[2018-09-04] MEDS: HYDROCODONE/APAP (5/325) TAB PO PRN (08:47)
[2018-09-04 11:12] VITALS: BP 140/74; PULSE 69; RESP 17
[2018-09-04] MEDS ORDERED: LEVO750T25 PO (11:20)
--- NOTE | 2018-09-04 11:20 | PDOCDIS ---
Discharge Instructions CONDITION [id number] Patient Condition: [id number] Stable HOME CARE INSTRUCTIONS: [id number] Diet Instructions: [id number] Low Fat /Cholesterol ACTIVITY: [id number] Activity Restrictions: [id number] Slowly Increase Activity Rest between Activity Avoid heavy lifting FOLLOW UP/APPOINTMENTS Follow-up Plan Please take your medications as prescribed. Please see your doctor in clinic in the next 1 week. GUERRERO NAVAS. Sep 04, 2018 11:20
[2018-09-04] MEDS ORDERED: FER325 PO (11:26)
[2018-09-04] MEDS ORDERED: DOCU-144 PO (11:26)
--- NOTE | 2018-09-04 11:26 | DS ---
Date/Time of Note Date/Time of Note DATE: 09/04/18 TIME: 11:21 Discharge Summary Admission/Discharge Info Admit Date/Time Sep 01, 2018 at 22:03 Discharge Date/Time Discharge Diagnosis 1. Obstructing left ureteral stone-Patient with a history of left-sided lithot ripsy about [address] scan abdomen pelvis this admission results noted - status post cystoscopy this admission 2. Sepsis secondary to UTI with possible left-sided pyelonephritis -patient on antibiotics, slowly improving 3. Microcytic anemia-appears to be secondary to iron deficiency -status post blood transfusion Patient Condition: Stable Procedures A. CT A/P: IMPRESSION: There is an obstructing 7 mm distal left ureteral stone at the UVJ with a second smaller nonobstructing stone more proximally within the left ureter measuring 3 mm. Multiple other bilateral nonobstructing renal calculi are seen including a staghorn calculus in the left upper pole. No evidence of bowel obstruction or inflammation. Trace atherosclerotic changes are visible. B. Date/Time of Note Date/Time of Note DATE: 09/03/18 TIME: 09:11 Operative Report Procedure Date: Sep 03, 2018 Preoperative Diagnosis Distal left ureteral stones Postoperative Diagnosis Same Operation/Procedure Performed Cystoscopy, left ureteroscopy, laser lithotripsy and insertion of left ureteral JJ stent 6 [place] by 20 cm long Hx of Present Illness 48-year-old female with a history of left-sided nephroureterolithiasis about 18- 20 years ago status post lithotripsy who presented to ER complaining of left flank and suprapubic pain. She also reported nonbloody nonbilious vomiting. When she presented to ER she was febrile with a temperature as high as 102.4. UA consistent with UTI. CT abdomen/pelvis shows there is an obstructing 7 mm distal left ureteral stone at the UVJ with a second smaller nonobstructing stone more proximally within the left ureter measuring 3 mm as well as multiple other bilateral nonobstructing renal calculi are seen including a staghorn calculus in the left upper pole. Currently, patient looks comfortable without any pain even on physical exam, even though she received pain meds several hours ago. Hospital Course The patient was admitted, seen by urology team during this hospital stay. She was placed on antibiotics given her infection. Regarding her stone, she underwe nt cystoscopy laser lithotripsy and treatment with stent placement. Patient tolerated the procedure well. She was also found microcytic anemia and low iron levels and placed on IV iron for that. Over the course of her hospital stay her pain symptoms improved. She had no fevers by the time of discharge. She also required blood transfusion, no signs of any upper or lower GI bleeding afterwards. She was able to ambulate, tolerated p.o. diet. After getting clearance from the reservoir engineering consultant teams she will be discharged home today in improved condition. See below for full list of discharge medications. Home Meds Active Scripts Levofloxacin* (Levaquin*) 750 Mg Tablet, 750 MG PO DAILY for 7 Days, #7 TAB Prov:SHEREE NAVASP S. 09/04/18 Discontinued Scripts Dextromethorphan Hb-Promethazine Hcl* (Promethazine DM* Syrup) 473 Ml Syrup, 5 ML PO Q6 PRN for COUGH, #4 OZ Prov:JAMAL RAT PA-C 09/03/17 Benzonatate* (Tessalon Perle*) 100 Mg Capsule, 100 MG PO Q8H PRN for COUGH, #15 CAP Prov:JAMAL ART-C 09/03/17 Ibuprofen* (Motrin*) 600 Mg Tab, 600 MG PO Q6, #20 TAB Prov:JAMAL ART-C 09/03/17 Sulfamethoxazole-Trimethoprim* (Bactrim* DS) 800-160 Mg Tab, 1 TAB PO BID for 7 Days, #14 TAB 0 Refills Prov:KAELA WRIGHT-C 04/05/16 Ibuprofen* (Motrin*) 400 Mg Tab, 400 MG PO Q6 for 7 Days, #30 TAB 0 Refills Prov:KAELA WRIGHT-C 04/05/16 Cephalexin* (Keflex*) 500 Mg Capsule, 500 MG PO TID for 7 Days, #21 CAP 0 Refills Prov:KAELA WRIGHT-C 04/05/16 Ibuprofen* (Motrin*) 600 Mg Tab, 600 MG PO Q8 for 10 Days, #30 TAB 0 Refills Prov:KAELA WRIGHT-C 03/16/16 Ondansetron Hcl* (Zofran* ODT) 4 mg -ODT Tab.disper, 4 MG PO Q6 PRN for NAUSEA AND/OR VOMITING, #30 TAB Prov:KEVON MARTINES MD 02/19/16 Hydrocodone Bit-Acetaminophen* ([place]*) 10-325 Mg Tablet, 1 TAB PO Q6 PRN for PAIN, #7 TAB Prov:KEVON MARTINES MD 02/19/16 Nitrofurantoin Monohyd Macrocr* (Macrobid*) 100 Mg Capsr, 100 MG PO BID for 7 Days, CAP Prov:KEVON MARTINES MD 02/19/16 Follow-up Plan Please take your medications as prescribed. Please see your doctor in clinic in the next 1 week. Primary Care Provider Care Physician No Primary Time spent on discharge: > 30 minutes Pending Labs Laboratory Tests Test 09/04/18 07:09 White Blood Count 11.6 10^3/ul (4.8-10.8) Red Blood Count 4.13 10^6/ul (4.20-5.40) Hemoglobin 8.8 g/dl (12.0-16.0) Hematocrit 29.5 % (37.0-47.0) Mean Corpuscular Volume 71.4 fl (82.0-101.0) Mean Corpuscular Hemoglobin 21.3 pg (29.0-33.0) Mean Corpuscular Hemoglobin Concent 29.8 g/dl (32.0-37.0) Red Cell Distribution Width 20.1 % (11.5-14.5) Platelet Count 221 10^3/UL (140-415) Mean Platelet Volume 10.7 fl (7.4-10.4) Immature Granulocytes % 1.600 % (0.001-0.429) Neutrophils % 78.7 % (39.0-77.0) Lymphocytes % 12.2 % (15.0-51.0) Monocytes % 7.0 % (0.0-11.0) Eosinophils % 0.2 % (0.0-7.0) Basophils % 0.3 % (0.0-2.0) Nucleated Red Blood Cells % 0.0 /100WBC (0.0-0.0) Immature Granulocytes # 0.190 10^3/ul (0.0-0.031) Neutrophils # 9.1 10^3/ul (1.6-7.5) Lymphocytes # 1.4 10^3/ul (0.8-2.9) Monocytes # 0.8 10^3/ul (0.3-0.9) Eosinophils # 0.0 10^3/ul (0.0-0.5) Basophils # 0.0 10^3/ul (0.0-0.1) Nucleated Red Blood Cells # 0.0 10^3/ul (0.0-0.0) Sodium Level 140 mmol/L (135-144) Potassium Level 4.0 mmol/L (3.5-5.1) Chloride Level 109 mmol/L (97-110) Carbon Dioxide Level 23 mmol/L (21-31) Anion Gap 8 (5-13) Blood Urea Nitrogen 17 mg/dl (7-20) Creatinine 0.63 mg/dl (0.44-1.00) Est Glomerular Filtrat Rate mL/min > 60 mL/min (>60) Glucose Level 113 mg/dl (70-220) Calcium Level 9.1 mg/dl (8.4-10.2) GUERRERO NAVAS Sep 04, 2018 11:26
--- NOTE | 2018-09-04 12:06 | CONS ---
Date/Time of Note Date/Time of Note DATE: 09/04/18 TIME: 12:05 Consult Date/Type/Reason Admit Date/Time Sep 01, 2018 at 22:03 Initial Consult Date 09/02/18 Requesting Provider: DANK SHERWOOD MD Objective Vital Signs Date Temp Pulse Resp B/P (MAP) Pulse Ox O2 O2 Flow FiO2 Time Delivery Rate 09/04/18 98.4 69 17 140/74 98 11:12 (96) 09/04/18 Room Air 04:00 09/03/18 6.0 09:19 Intake and Output 09/03/18 09/03/18 09/04/18 1515:00 23:00 07:00 IntakeIntake Total 2100 ml 2000 ml 1160 ml OutputOutput Total 5 ml BalanceBalance 2095 ml 2000 ml 1160 ml Results/Medications Result Diagram: 09/04/18 0709 09/04/18 0709 Results 24 hrs Laboratory Tests Test 09/04/18 07:09 White Blood Count 11.6 #H Red Blood Count 4.13 L Hemoglobin 8.8 L Hematocrit 29.5 L Mean Corpuscular Volume 71.4 L Mean Corpuscular Hemoglobin 21.3 L Mean Corpuscular Hemoglobin Concent 29.8 L Red Cell Distribution Width 20.1 H Platelet Count 221 Mean Platelet Volume 10.7 H Immature Granulocytes % 1.600 H Neutrophils % 78.7 H Lymphocytes % 12.2 L Monocytes % 7.0 Eosinophils % 0.2 Basophils % 0.3 Nucleated Red Blood Cells % 0.0 Immature Granulocytes # 0.190 H Neutrophils # 9.1 H Lymphocytes # 1.4 Monocytes # 0.8 Eosinophils # 0.0 Basophils # 0.0 Nucleated Red Blood Cells # 0.0 Sodium Level 140 Potassium Level 4.0 Chloride Level 109 Carbon Dioxide Level 23 Anion Gap 8 Blood Urea Nitrogen 17 Creatinine 0.63 Est Glomerular Filtrat Rate mL/min > 60 Glucose Level 113 Calcium Level 9.1 Medications Current Medications Sodium Chloride 1,000 ml @ 100 mls/hr Q10H IV Last administered on 09/04/18at 02:35; Admin Dose 100 MLS/HR; Start 09/02/18 at 00:00 IV Flush (NS 3 ml) 3 ml PER PROTOCOL IV ; Start 09/02/18 at 00:00 Ondansetron HCl (Zofran Inj) 4 mg Q6H PRN IV NAUSEA AND/OR VOMITING Last administered on 09/02/18at 03:29; Admin Dose 4 MG; Start 09/02/18 at 00:00 Acetaminophen (Tylenol Tab) 650 mg Q6H PRN PO PAIN LEVEL 1-3 OR FEVER; Start 09/02/18 at 00:00 Acetaminophen/ Hydrocodone Bitart ([place] (5/325)) 1 tab Q6H PRN PO MODERATE PAIN LEVEL 4-6; Start 09/02/18 at 00:00 Acetaminophen/ Hydrocodone Bitart ([place] (5/325)) 2 tab Q6H PRN PO SEVERE PAIN LEVEL 7-10 Last administered on 09/04/18at 08:47; Admin Dose 2 TAB; Start 09/02/18 at 00:00 Ceftriaxone Sodium 50 ml @ 100 mls/hr DAILY IVPB Last administered on 09/04/18at 08:43; Admin Dose 100 MLS/HR; Start 09/02/18 at 09:00 Ferric Sodium Gluconate Complex 125 mg/Sodium Chloride 100 ml @ 100 mls/hr DAILY@1300 IVPB Last administered on 09/03/18at 14:15; Admin Dose 100 MLS/HR; Start 09/02/18 at 13:00; Stop 09/04/18 at 13:59 Assessment/Plan Chief Complaint/Hosp Course 48-year-old female presented to the emergency room with left flank pain. She underwent a CT scan of the abdomen and pelvis and that showed multiple stones in the left kidney and a 7 mm stone in the distal left ureter causing obstruction. Urological consultation was therefore requested. Patient underwent cystoscopy and left ureteroscopy with laser lithotripsy and insertion of left ureteral JJ stent on 09/03/2018. She is comfortable today and has no pain. Therefore she may be discharged home from a urological standpoint and follow-up in the office this coming week to remove the JJ stent. As far as her anemia the hospitalist is taking care of that. ANDREW PANTOJA MD Sep 04, 2018 12:06
--- NOTE | 2018-09-04 21:21 | RADRPT ---
Vent Rate: 100 bpm RR Interval: 0 msec DC Interval: 112 msec QRS Duration: 82 msec QT Interval: 326 msec QTC Interval: 420 msec P-R-T Social Circle: 30 - 29 - 13 degrees Normal sinus rhythm Nonspecific ST abnormality Abnormal ECG Electronically Signed By: Se Bangura [id number]
== END 2018-09-04 12:38 | disposition home or self-care (01) | DRG 854 ==
LOC: E/R 18:18 → CANBEDREQ 21:52 → 6WM 22:03
PROVIDERS: ADMIT Internal Medicine; ATTEND Hospitalist
PROC: 0T778DZ Dilation of Left Ureter with Intraluminal Device, Via Natural or Artificial Opening Endoscopic (ICD-10-PCS; 2018-09-03)
PROC: 30233N1 Transfusion of Nonautologous Red Blood Cells into Peripheral Vein, Percutaneous Approach (ICD-10-PCS; 2018-09-03)
PROC: 0TC78ZZ Extirpation of Matter from Left Ureter, Via Natural or Artificial Opening Endoscopic (ICD-10-PCS; principal; 2018-09-03 07:30)
DX: A41.9 Sepsis, unspecified organism (principal); N13.2 Hydronephrosis with renal and ureteral calculous obstruction; N12 Tubulo-interstitial nephritis, not specified as acute or chronic; D50.9 Iron deficiency anemia, unspecified; E87.6 Hypokalemia; Z90.49 Acquired absence of other specified parts of digestive tract
CPT/HCPCS: 36415; 36430; 71045; 74018; 74176; 74430; 80048; 80053; 81001; 82270; 82728; 83540; 83690; 83735; 84100; 84703; 85014; 85018; 85025; 85610; 85730; 86850; 86900; 86901; 86920; 87086; 88300; 93005; 96374; 96375; C2617; J0690; J0696; J1100; J1644; J1885; J2250; J2405; J2710; J2765; J2916; J3010; J3480; J7030; P9016